=== PATIENT | female | born 1935 | race Caucasian/White ===

== ENCOUNTER 2021-04-19 00:17 | Inpatient (IN) ==
[2021-04-19] MEDS ORDERED: Isovue-370 500 ML BOTTLE IVP ONE (00:24)
[2021-04-19 01:10] LABS: Basophils # 0.1 K/mcL (0.0-0.2); Basophils % 0.6 %; Eosinophils # 0.1 K/mcL (0.0-0.6); Eosinophils % 1.3 %; Hematocrit 40.7 % (35.3-44.9); Hemoglobin 12.9 g/dL (11.5-15.4); Immature Granulocytes % 1.2 % (0-4); Lymphocytes # 1.1 K/mcL (0.6-4.6); Lymphocytes % 11.6 %; Mean Corpuscular HGB Conc 31.7 g/dL (31.6-35.5); Mean Corpuscular Hemoglobin 31.7 pg (28.0-33.3); Mean Platelet Volume 10.6 fL (9.4-12.4); Monocytes # 0.8 K/mcL (0.0-1.3); Monocytes % 8.8 %; Neutrophils # 6.9 K/mcL (1.6-8.9); Platelet Count 212 K/mcL (140-400); Red Blood Count 4.07 M/mcL (3.82-4.97); Red Cell Distribution Width 13.6 % (11.5-14.5); Segmented Neutrophils % 76.5 %
[2021-04-19 01:24] LABS: Activated Partial Thrombo Time 46.4 Seconds (26.0-36.0)
[2021-04-19 01:29] LABS: Alanine Aminotransferase 34 Units/L (7-52); Albumin 4.2 g/dL (3.5-5.7); Albumin/Globulin Ratio 1.4 (1.1-2.2); Alkaline Phosphatase 81 Units/L (34-104); Amylase 38 Units/L (29-103); Aspartate Amino Transferase 95 Units/L (13-39); BUN/Creatinine Ratio 14 (6-26); Bilirubin,Total 1.6 mg/dL (0.3-1.0); Blood Urea Nitrogen 22 mg/dL (8-23); Carbon Dioxide 23 mEq/L (23-29); Chloride 105 mEq/L (98-107); Globulin 2.9 g/dL (2.4-3.5); Glucose 139 mg/dL (70-105); Lipase 99 Units/L (11-82); Osmolality,Calculated 296 (280-300); Potassium 4.1 mEq/L (3.5-5.1); Sodium 140 mEq/L (136-145); Total Protein 7.1 g/dL (6.4-8.9); eGFR For African Americans 37 (> 60); eGFR For Non-African Americans 30 (> 60)
[2021-04-19 01:30] LABS: Bacteria,Urine Few per hpf (None-Few); Bilirubin,Urine Negative (Negative); Blood,Urine Negative (Negative); Clarity,Urine Clear (Clear); Color,Urine Yellow (Yellow); Glucose,Urine (UA) Normal (Normal); Ketones,Urine Trace mg/dL (Negative); Leukocyte Esterase,Urine Trace (Negative); Mucus,Urine Few per lpf (None-Few); Nitrite,Urine Negative (Negative); PH,Urine 5.5 pH Units (5.0-8.0); Protein,Urine 30 mg/dL (Neg-Trace); Specific Gravity,Urine 1.026 (1.010-1.025); Squamous Epithelial Cell,Urine Few per hpf (None-Few); Urobilinogen,Urine Normal (Normal); WBC,Urine 0-3 per hpf (0-3)
[2021-04-19 01:52] LABS: Troponin I < 0.03 ng/mL (< 0.04)
[2021-04-19 03:01] LABS: INR 2.6; Prothrombin Time 29.1 Seconds (9.4-12.1)
[2021-04-19] MEDS ORDERED: 0.9 % Sodium Chloride 500 ML IV ONE (04:01)
[2021-04-19] MEDS ORDERED: GI Cocktail 40 ML EACH PO ONE (05:38)
[2021-04-19] MEDS ORDERED: 0.9 % Sodium Chloride 1,000 ML IV ONE (13:10)
[2021-04-19] MEDS ORDERED: MOM Conc 10 ML UD.LIQ PO PRN (13:35)
[2021-04-19] MEDS ORDERED: Naloxone 0.4 MG/ML INJ IVP PRN (13:35)
[2021-04-19] MEDS ORDERED: Mag Hydrox/Al Hydrox/Simeth 30 ML UDC PO PRN (13:35)
[2021-04-19] MEDS ORDERED: Melatonin 3 MG TABLET PO PRN (13:35)
[2021-04-19] MEDS ORDERED: Ondansetron ODT 4 MG TAB.RAPDIS SL PRN (13:35)
[2021-04-19] MEDS ORDERED: Perflutren Lipid Microsphere 1.3 ML in 0.9 % Sodium Chloride 8.7 ML IVP PRN (13:40)
[2021-04-19] MEDS ORDERED: *HR* Phytonadione 5 MG TABLET PO ONE (14:00)
[2021-04-19] MEDS: Piperacillin/Tazobactam 3.375 GM in 0.9 % Sodium Chloride Mini Bag 100 ML IVPB SCH ×2 (15:42→23:55)
[2021-04-20 04:23] LABS: Basophils # 0.1 K/mcL (0.0-0.2); Basophils % 1.1 %; Eosinophils # 0.2 K/mcL (0.0-0.6); Eosinophils % 3.3 %; Hematocrit 36.7 % (35.3-44.9); Hemoglobin 11.7 g/dL (11.5-15.4); Immature Granulocytes % 0.9 % (0-4); Lymphocytes # 1.3 K/mcL (0.6-4.6); Lymphocytes % 20.6 %; Mean Corpuscular HGB Conc 31.9 g/dL (31.6-35.5); Mean Corpuscular Hemoglobin 32.1 pg (28.0-33.3); Mean Corpuscular Volume 100.5 fL (83.0-100.0); Mean Platelet Volume 10.8 fL (9.4-12.4); Monocytes # 0.7 K/mcL (0.0-1.3); Monocytes % 10.3 %; Platelet Count 185 K/mcL (140-400); Red Blood Count 3.65 M/mcL (3.82-4.97); Red Cell Distribution Width 13.7 % (11.5-14.5); Segmented Neutrophils % 63.8 %; White Blood Count 6.3 K/mcL (4.3-11.1)
[2021-04-20 04:32] LABS: INR 2.3; Prothrombin Time 25.8 Seconds (9.4-12.1)
[2021-04-20 04:42] LABS: Calcium 8.3 mg/dL (8.6-10.3); Potassium 4.1 mEq/L (3.5-5.1)
[2021-04-20] MEDS ORDERED: *HR* Heparin 5,000 UNIT/ML VIAL IVP ONE (07:49)
[2021-04-20] MEDS ORDERED: *HR* Heparin 5,000 UNIT/ML VIAL IVP PRN ×2 (07:49)
[2021-04-20] MEDS ORDERED: Heparin 25,000UNIT/250ML 1/2NS 25,000 UNIT/250 ML IV.SOLN IVC SCH (08:00)
[2021-04-20 09:32] LABS: Heparin anti-factor XA UFH < 0.04 IU/mL (0.30-0.70); INR 2.2; Prothrombin Time 23.9 Seconds (9.4-12.1)
[2021-04-20] MEDS: amLODIPine 5 MG TABLET PO SCH (09:50)
[2021-04-20] MEDS: Piperacillin/Tazobactam 3.375 GM in 0.9 % Sodium Chloride Mini Bag 100 ML IVPB SCH ×2 (09:50→17:00)
[2021-04-20] MEDS ORDERED: Acetaminophen 325 MG TABLET PO ONE (21:07)
[2021-04-21] MEDS: Piperacillin/Tazobactam 3.375 GM in 0.9 % Sodium Chloride Mini Bag 100 ML IVPB SCH ×3 (00:39→16:44)
[2021-04-21 04:56] LABS: INR 1.7; Prothrombin Time 18.5 Seconds (9.4-12.1)
[2021-04-21] MEDS: amLODIPine 5 MG TABLET PO SCH (09:33)
[2021-04-21] MEDS ORDERED: *HR* FentaNYL (PF) 100 MCG/2 ML VIAL ONE (11:42)
[2021-04-21] MEDS ORDERED: Lidocaine HCL 4 ML Topical Solution (Laryng-O-Jet Kit Sterile Pak) TP ONE (11:43)
[2021-04-21] MEDS ORDERED: *HR* Rocuronium Bromide 50 MG/5 ML VIAL ONE (11:43)
[2021-04-21] MEDS ORDERED: Ondansetron 4 MG/2 ML VIAL ONE (11:43)
[2021-04-21] MEDS ORDERED: *HR* Propofol 200 MG/20 ML VIAL IVP ONE (11:43)
[2021-04-21] MEDS ORDERED: *HR* Magnesium Sulfate 1 GM/2 ML VIAL ONE (11:43)
[2021-04-21] MEDS ORDERED: Lidocaine -MPF 2% 5 ML VIAL ONE (11:43)
[2021-04-21] MEDS ORDERED: *HR* HYDROmorphone PF 0.5 MG/0.5 ML SYRINGE IVP PRN (11:57)
[2021-04-21] MEDS ORDERED: *HR* OxyCODONE Immed Rel 5 MG TABLET PO PRN (11:57)
[2021-04-21] MEDS ORDERED: *HR* Phenylephrine 10 MG/ML VIAL ONE (12:39)
[2021-04-21] MEDS ORDERED: Sugammadex Sodium 200 MG/2 ML VIAL IV ONE (13:36)
[2021-04-21] MEDS ORDERED: *HR* HYDROMORPHONE 2 MG/ML VIAL ONE (13:52)
[2021-04-21] MEDS ORDERED: Perflutren Lipid Microsphere 1.3 ML in 0.9 % Sodium Chloride 8.7 ML IVP PRN (14:41)
[2021-04-21] MEDS ORDERED: Ondansetron ODT 4 MG TAB.RAPDIS SL PRN (14:41)
[2021-04-21] MEDS ORDERED: Naloxone 0.4 MG/ML INJ IVP PRN (14:41)
[2021-04-21] MEDS ORDERED: MOM Conc 10 ML UD.LIQ PO PRN (14:41)
[2021-04-21] MEDS ORDERED: Mag Hydrox/Al Hydrox/Simeth 30 ML UDC PO PRN (14:41)
[2021-04-21] MEDS ORDERED: Melatonin 3 MG TABLET PO PRN (14:41)
[2021-04-21] MEDS ORDERED: *HR* Heparin 5,000 UNIT/ML VIAL IVP PRN ×2 (20:27)
[2021-04-21] MEDS: Heparin 25,000UNIT/250ML 1/2NS 25,000 UNIT/250 ML IV.SOLN IVC SCH (22:20)
[2021-04-22] MEDS: Piperacillin/Tazobactam 3.375 GM in 0.9 % Sodium Chloride Mini Bag 100 ML IVPB SCH ×4 (00:48→23:49)
[2021-04-22 04:46] LABS: Basophils % 0.3 %; Hematocrit 35.4 % (35.3-44.9); Hemoglobin 11.7 g/dL (11.5-15.4); Immature Granulocytes % 0.9 % (0-4); Lymphocytes # 0.6 K/mcL (0.6-4.6); Lymphocytes % 7.8 %; Mean Corpuscular HGB Conc 33.1 g/dL (31.6-35.5); Mean Corpuscular Hemoglobin 33.1 pg (28.0-33.3); Mean Corpuscular Volume 100.3 fL (83.0-100.0); Mean Platelet Volume 10.8 fL (9.4-12.4); Monocytes # 0.4 K/mcL (0.0-1.3); Monocytes % 5.5 %; Neutrophils # 6.9 K/mcL (1.6-8.9); Platelet Count 184 K/mcL (140-400); Red Blood Count 3.53 M/mcL (3.82-4.97); Red Cell Distribution Width 13.5 % (11.5-14.5); Segmented Neutrophils % 85.5 %
[2021-04-22 04:54] LABS: Heparin anti-factor XA UFH 0.95 IU/mL (0.30-0.70); INR 1.4; Prothrombin Time 15.7 Seconds (9.4-12.1)
[2021-04-22 05:07] LABS: Calcium 8.7 mg/dL (8.6-10.3); Magnesium 2.5 mg/dL (1.6-2.6); Phosphorous 3.9 mg/dL (2.7-4.5); Potassium 4.3 mEq/L (3.5-5.1)
[2021-04-22 05:10] LABS: Activated Partial Thrombo Time 168.4 Seconds (26.0-36.0)
[2021-04-22] MEDS: amLODIPine 5 MG TABLET PO SCH (08:22)
[2021-04-22] MEDS: polyethylene glycoL 3350 17 GM POWD.PACK PO SCH (09:58)
[2021-04-22] MEDS: Acetaminophen IV 1,000 MG/100 ML BAG IVPB SCH ×2 (09:59→16:31)
[2021-04-22] MEDS ORDERED: ALPRAZolam 0.5 MG TABLET PO ONE (14:18)
[2021-04-22] MEDS ORDERED: *HR* Warfarin 5 MG TABLET PO ONE (18:00)
[2021-04-22] MEDS ORDERED: Warfarin perPT PO PRN (18:00)
[2021-04-22] MEDS: *HR* OxyCODONE Immed Rel 5 MG TABLET PO PRN (21:50)
[2021-04-22] MEDS: Heparin 25,000UNIT/250ML 1/2NS 25,000 UNIT/250 ML IV.SOLN IVC SCH (21:50)
[2021-04-23] MEDS: Acetaminophen IV 1,000 MG/100 ML BAG IVPB SCH ×3 (02:48→17:59)
[2021-04-23 05:56] LABS: INR 1.5; Prothrombin Time 16.2 Seconds (9.4-12.1)
[2021-04-23] MEDS: Piperacillin/Tazobactam 3.375 GM in 0.9 % Sodium Chloride Mini Bag 100 ML IVPB SCH ×2 (08:15→16:20)
[2021-04-23] MEDS: polyethylene glycoL 3350 17 GM POWD.PACK PO SCH (08:15)
[2021-04-23] MEDS: Bisacodyl 10 MG RECTAL SUPPOSITORY RC SCH (08:15)
[2021-04-23] MEDS: amLODIPine 5 MG TABLET PO SCH (08:16)
[2021-04-23] MEDS ORDERED: Furosemide 20 MG/2 ML VIAL IVP ONE (11:37)
[2021-04-23] MEDS: *HR* OxyCODONE Immed Rel 5 MG TABLET PO PRN (11:41)
[2021-04-23] MEDS ORDERED: *HR* Warfarin 5 MG TABLET PO ONE (18:00)
[2021-04-23] MEDS: Heparin 25,000UNIT/250ML 1/2NS 25,000 UNIT/250 ML IV.SOLN IVC SCH (21:41)
[2021-04-24 01:38] LABS: INR 1.5; Prothrombin Time 17.2 Seconds (9.4-12.1)
[2021-04-24] MEDS: Acetaminophen IV 1,000 MG/100 ML BAG IVPB SCH ×2 (02:32→08:10)
[2021-04-24] MEDS: Piperacillin/Tazobactam 3.375 GM in 0.9 % Sodium Chloride Mini Bag 100 ML IVPB SCH ×2 (02:32→07:56)
[2021-04-24 06:33] VITALS: PULSE 66
[2021-04-24] MEDS: Bisacodyl 10 MG RECTAL SUPPOSITORY RC SCH (08:09)
[2021-04-24] MEDS: amLODIPine 5 MG TABLET PO SCH (08:32)
[2021-04-24] MEDS: polyethylene glycoL 3350 17 GM POWD.PACK PO SCH (08:46)
[2021-04-24 10:32] VITALS: BP 126/63; TEMP 97.9; O2SAT 95
[2021-04-24] MEDS ORDERED: *HR* Warfarin 5 MG TABLET PO ONE (18:00)
== END 2021-04-24 13:10 | disposition home or self-care (01) | DRG 417 ==
LOC: EMEROOARM 00:17 → 3BNU 00:17 → SUATTDRO 13:26 → 3BNU 14:03
PROVIDERS: ADMIT Internal Medicine; ATTEND Internal Medicine